=== PATIENT | female | born 1990 | race American Indian/Alaskan Native ===

== ENCOUNTER 2018-05-02 09:37 | Emergency (ER) | payer OTHER ==
[2018-05-02] MEDS ORDERED: ULTRAM PO ONE (11:27)
[2018-05-02] MEDS ORDERED: MOTRIN PO ONE (11:27)
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
[2018-05-02 13:20] VITALS: BP 128/72
== END 2018-05-02 13:16 | disposition home or self-care (01) ==
LOC: ED 09:37
DX: H57.8 Other specified disorders of eye and adnexa (principal); H57.12 Ocular pain, left eye; J34.89 Other specified disorders of nose and nasal sinuses
CPT/HCPCS: 70486; 99283

== ENCOUNTER 2021-03-04 22:38 | Emergency (ER) | payer OTHER ==
[2021-03-05 02:50] VITALS: BP 112/91
[2021-03-05] MEDS ORDERED: IBUPROFEN 600 MG TAB PO ONE (03:46)
[2021-03-05] MEDS ORDERED: ACETAMINOPHEN 500 MG TAB PO ONE (03:46)
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
== END 2021-03-05 04:20 | disposition home or self-care (01) ==
LOC: ED 22:38
DX: S46.812A Strain of other muscles, fascia and tendons at shoulder and upper arm level, left arm, initial encounter (principal); S16.1XXA Strain of muscle, fascia and tendon at neck level, initial encounter; Z79.899 Other long term (current) drug therapy; V89.2XXA Person injured in unspecified motor-vehicle accident, traffic, initial encounter; Y93.89 Activity, other specified; Y92.488 Other paved roadways as the place of occurrence of the external cause; Y99.8 Other external cause status
CPT/HCPCS: 99283